=== PATIENT | female | born 1945 | race Caucasian/White ===

== ENCOUNTER 2022-10-10 10:31 | Outpatient (CLI) | payer MEDICARE | END 2022-10-10 10:32 | disposition home or self-care (01) | LOC: CSHCP 10:31 | PROVIDERS: ATTEND Family Medicine | DX: R06.02 Shortness of breath (principal); Z72.0 Tobacco use; J44.9 Chronic obstructive pulmonary disease, unspecified | CPT/HCPCS: 94060; 94726; 94729; 94760 ==

== ENCOUNTER 2022-10-21 15:00 | Outpatient (CLI) | payer MEDICARE | END 2022-10-21 15:01 | disposition home or self-care (01) | LOC: CSHMRI 15:00 | PROVIDERS: ATTEND Family Medicine | DX: G89.4 Chronic pain syndrome (principal); M47.26 Other spondylosis with radiculopathy, lumbar region; I71.40 Abdominal aortic aneurysm, without rupture, unspecified | CPT/HCPCS: 72100; 72148 ==

== ENCOUNTER 2022-11-07 07:54 | Emergency (ER) | payer MEDICARE ==
[2022-11-07 08:39] LABS: #Eosinphils 0.1 10x3/uL (0.0-0.5); #Monocytes 0.4 10x3/uL (0.0-1.1); #Neutrophils 7.2 10x3/uL (1.5-8.4); %Basophils 0.2 % (0.0-2.0); %Eosinophils 1.4 % (0.0-6.0); %Lymphocytes 12.1 % (18.0-47.0); %Monocytes 4.1 % (0.0-10.0); Hemoglobin 11.9 g/dL (12.0-15.5); Mean Corpuscular HGB CONC 33.4 g/dL (32.0-36.0); Mean Corpuscular Hemoglobin 31.3 pg (27.0-33.0); Mean Corpuscular Volume 93.7 fl (81.6-98.3); Mean Platelet Volume 9.8 fl (7.4-10.4); Platelet Count 245 10x3/uL (150-450); White Blood Cell (WBC) Count 8.8 10x3/uL (3.5-10.5)
[2022-11-07 08:49] LABS: ALT (SGPT) 20 U/L (8-55); AST (SGOT) 17 U/L (5-34); Albumin 3.8 g/dL (3.4-4.8); Alkaline Phosphatase 143 U/L (40-110); Anion Gap 16 mmol/L (10-20); BUN (Urea Nitrogen) 16 mg/dL (9.8-20.1); Bilirubin, Total 0.5 mg/dL (0.2-1.2); Calc. Creatinine Clearance 0 mL/min (70-130); Calcium 8.5 mg/dL (7.8-10.44); Carbon Dioxide 22 mmol/L (23-31); Chloride 106 mmol/L (98-107); Estimated GFR 66; Globulin 2.6 g/dL (2.4-3.5); Glucose 155 mg/dL (83-110); Potassium 3.5 mmol/L (3.5-5.1); Protein, Total 6.4 g/dL (5.8-8.1); Sodium 140 mmol/L (136-145)
== END 2022-11-07 11:55 | disposition home or self-care (01) ==
LOC: CSHERS 07:54
DX: R55 Syncope and collapse (principal); E03.9 Hypothyroidism, unspecified; E78.00 Pure hypercholesterolemia, unspecified; F17.210 Nicotine dependence, cigarettes, uncomplicated
CPT/HCPCS: 70450; 80053; 84484; 85025; 93005